=== PATIENT | female | born 1970 | race Caucasian/White ===

== ENCOUNTER 2018-11-07 12:01 | Emergency (ER) | payer MEDICAID ==
[2018-11-07] MEDS: NEOMYC/POLYMYX/BACIT 30 GM OINT TOP (15:08)
[2018-11-07] MEDS: LIDOCAINE 1% (MDV) 20 ML INJ SC (15:08)
== END 2018-11-07 15:41 | disposition home or self-care (01) ==
LOC: FTE 12:01
DX: L03.012 Cellulitis of left finger (principal)
CPT/HCPCS: 99283-25; Z7502